=== PATIENT | female | born 1995 | race Caucasian/White ===

== ENCOUNTER 2018-12-14 15:08 | Emergency (ER) | payer MEDICAID ==
[~2018-12-14] VITALS: Ht 157.5 cm; Wt 74.4 kg
[2018-12-14 15:23] VITALS: Ht 157.5 cm; Wt 74.4 kg
[2018-12-14 16:43] VITALS: BP 118/75
== END 2018-12-14 16:43 | disposition home or self-care (01) ==
LOC: ED 15:08
DX: S82.64XA Nondisplaced fracture of lateral malleolus of right fibula, initial encounter for closed fracture (principal); Z98.890 Other specified postprocedural states; W18.49XA Other slipping, tripping and stumbling without falling, initial encounter; Y93.89 Activity, other specified; Y92.89 Other specified places as the place of occurrence of the external cause; Y99.8 Other external cause status
CPT/HCPCS: Q0092